=== PATIENT | male | born 2000 | race African-American/Black ===

== ENCOUNTER 2019-09-05 18:54 | Emergency (ER) | payer OTHER ==
[~2019-09-05] VITALS: Ht 162.6 cm; Wt 73.0 kg
[2019-09-05 20:00] VITALS: BP 140/72
== END 2019-09-05 20:01 | disposition home or self-care (01) ==
LOC: ER 18:54
DX: Z04.89 Encounter for examination and observation for other specified reasons (principal)
CPT/HCPCS: 99281